=== PATIENT | female | born 1940 | race Caucasian/White ===

== ENCOUNTER 2017-10-23 05:30 | Inpatient (IN) ==
[2017-10-25 07:12] VITALS: BP 143/81
== END 2017-10-25 15:45 | disposition home or self-care (01) | DRG 743 ==
LOC: N.OR 05:30 → N.SDSINP 05:31 → N.OB 09:57
PROVIDERS: ADMIT Specialist; ATTEND Specialist

== ENCOUNTER 2022-04-10 10:22 | Observation (INO) ==
[2022-04-10] MEDS ORDERED: hydrALAZINE 20 MG/1 ML VIAL IV STA ×2 (11:12→12:24)
[2022-04-10] MEDS ORDERED: MECLIZINE 25 MG TABLET PO STA (11:12)
[2022-04-10 11:43] LABS: Basophils # 0.1 10*3/uL (0.0-0.2); Basophils % 0.4 % (0.0-0.8); Eosinophils % 0.2 % (0.00-10.9); Hematocrit 40.9 VOL% (35.7-47.0); Immature Granulocytes % 0.6 %; Immature Granulocytes Absolute 0.07 #; Lymphocytes # 1.6 10*3/uL (1.4-4.0); Lymphocytes % 12.3 % (21.3-54.2); Mean Corpuscular HGB Conc 34.2 GM/DL (32-36); Mean Platelet Volume 9.5 FL (9.6-12.0); Monocytes # 0.5 10*3/uL (0.11-0.8); Monocytes % 3.7 % (1.7-12.7); Neutrophils % 82.8 % (38.7-73.9); Platelet Count 311 T/CUMM (130-400); White Blood Count 12.7 T/CUMM (4-12)
[2022-04-10 11:58] LABS: Albumin 3.8 G/DL (3.4-5.0); Bilirubin,Total 0.5 MG/DL (0.20-1.00); Calcium 9.5 MG/DL (8.5-10.1); Osmolality,Calculated 288.4 MOS/KG (273-304); Potassium 3.3 MMOL/L (3.5-5.1); Total Protein 7.8 G/DL (6.4-8.2)
[2022-04-10] MEDS: NEBIVOLOL 10 MG TABLET PO SCH (12:44)
[2022-04-10] MEDS ORDERED: DILTIAZEM CD 120 MG CAPSULE PO STA (15:53)
[2022-04-10] MEDS ORDERED: ONDANSETRON 4 MG/2 ML VIAL IV STA (15:54)
[2022-04-10] MEDS: SODIUM CHLORIDE 0.9% 1,000 ML IV SCH (16:14)
[2022-04-10] MEDS ORDERED: ACETAMINOPHEN 325 MG TABLET PO PRN (18:46)
[2022-04-10] MEDS ORDERED: hydrALAZINE 20 MG/1 ML VIAL IV PRN (18:46)
[2022-04-10] MEDS ORDERED: DOCUSATE SODIUM 100 MG CAPSULE PO PRN (18:46)
[2022-04-10] MEDS ORDERED: ONDANSETRON 4 MG/2 ML VIAL IV PRN (18:46)
[2022-04-10] MEDS: PANTOPRAZOLE 40 MG VIAL IV SCH (21:58)
[2022-04-10] MEDS: INSULIN REGULAR 100 UNIT/ML SUBCUT SCH (22:05)
[2022-04-11 00:42] LABS: Basophils % 0.3 % (0.0-0.8); Eosinophils # 0.1 10*3/uL (0.0-0.87); Eosinophils % 0.4 % (0.00-10.9); Hemoglobin 12.3 GM/DL (12.0-16.0); Immature Granulocytes % 0.5 %; Immature Granulocytes Absolute 0.06 #; Lymphocytes # 3.2 10*3/uL (1.4-4.0); Lymphocytes % 25.8 % (21.3-54.2); Mean Corpuscular HGB Conc 34.2 GM/DL (32-36); Mean Corpuscular Volume 87.6 FL (87-102); Mean Platelet Volume 9.2 FL (9.6-12.0); Monocytes # 0.8 10*3/uL (0.11-0.8); Monocytes % 6.4 % (1.7-12.7); Neutrophils % 66.6 % (38.7-73.9); Platelet Count 301 T/CUMM (130-400); Red Blood Count 4.11 MC/CUMM (3.8-5.5); Red Cell Distribution Width 13.3 % (9.3-17.3); White Blood Count 12.3 T/CUMM (4-12)
[2022-04-11 01:01] LABS: Calcium 8.5 MG/DL (8.5-10.1); Osmolality,Calculated 286.3 MOS/KG (273-304); Potassium 3.1 MMOL/L (3.5-5.1); Thyroid Stimulating Hormone 0.756 uIU/ml (0.358-3.74)
[2022-04-11] MEDS: SODIUM CHLORIDE 0.9% 1,000 ML IV SCH (01:08)
[2022-04-11] MEDS: INSULIN REGULAR 100 UNIT/ML SUBCUT SCH ×2 (07:55→12:45)
[2022-04-11] MEDS: POTASSIUM CHLORIDE 20 MEQ TABLET PO SCH ×2 (08:40→10:31)
[2022-04-11] MEDS: NEBIVOLOL 10 MG TABLET PO SCH (08:40)
[2022-04-11] MEDS: PANTOPRAZOLE 40 MG VIAL IV SCH (08:40)
[2022-04-11] MEDS ORDERED: DILTIAZEM CD 120 MG CAPSULE PO SCH (09:00)
[2022-04-11 12:44] VITALS: BP 125/68
[2022-04-11] MEDS ORDERED: SIMVASTATIN 10 MG TABLET PO SCH (21:00)
== END 2022-04-11 14:26 | disposition home or self-care (01) ==
LOC: N.ED 10:22 → N.EDINP 10:22 → N.TELEN 22:37
PROVIDERS: ADMIT Internal Medicine; ATTEND Internal Medicine